=== PATIENT | female | born 1940 | race Caucasian/White ===

== ENCOUNTER 2016-11-17 09:44 | Inpatient (IN) | payer OTHER ==
[~2016-11-17] VITALS: Ht 165.1 cm; Wt 38.6 kg
--- NOTE | 2016-11-17 09:45 | NUR ---
Arrived via [facility] for weakness/syncope. Awake alert and oriented on EMS arrival she then became unresponsive again with BP 73/30. Patient is now drosy though awake alert and oriented. Placed in room 3 . Placed on security monitor, blood pressure machine and pulse oximeter. To gown for exam. Side rails up. Report given to Fallon SHERMAN.
[2016-11-17] MEDS ORDERED: NACL 0.9% 1,000 ML IV SCH (09:55)
[2016-11-17 09:57] VITALS: BP 73/35; PULSE 68; RESP 16; TEMP 97; O2SAT 97
--- NOTE | 2016-11-17 09:57 | NUR ---
KATELIN IBRAHIM AT BEDSIDE FOR EVAL.
--- NOTE | 2016-11-17 10:31 | NUR ---
ACCUCHECK 107. AWARE. PTS REQUESTED THAT FRIEND NAVDEEP BE CALLED. CALLED [phone] AND SPOEK WITH [employer]DEEP'S .
--- NOTE | 2016-11-17 10:40 | NUR ---
Rachel Rodriguez called and stated the patient has been walking through the dinning room without eating for several week. They arenot aware of any decline in mental status until today.
[2016-11-17 10:55] LABS: BASOPHILS # (AUTO) 0.1 K/uL (0.0-0.2); BASOPHILS % (AUTO) 1.3 % (0.0-2.0); EOSINOPHILS % (AUTO) 0.3 % (0.0-4.0); HEMATOCRIT 35.2 % (36-48); HEMOGLOBIN 11.7 g/dL (12.0-16.0); LYMPHOCYTES # (AUTO) 0.4 K/uL (1.0-5.5); LYMPHOCYTES % (AUTO) 9.6 % (20.5-51.5); MEAN CORPUSCULAR HEMOGLOBIN 32 pg (27-31); MEAN CORPUSCULAR HGB CONC 33 % (32-36); MEAN CORPUSCULAR VOLUME 96 fL (79.0-98.0); MONOCYTES # (AUTO) 0.1 K/uL (0.0-1.0); MONOCYTES % (AUTO) 2.8 % (1.7-9.3); NEUTROPHILS # (AUTO) 3.9 K/uL (1.8-7.7); PLATELET COUNT (AUTO) 211 K/uL (130-430); RED BLOOD CELL COUNT(AUTO) 3.68 MIL/uL (4.2-6.2); WHITE BLOOD COUNT (AUTO) 4.5 K/uL (4.8-10.8)
--- NOTE | 2016-11-17 11:00 | NUR ---
IV FLUIDS 1500CC GIVEN TOTAL. BP 92/45. HR 99.
[2016-11-17 11:07] LABS: ANION GAP 15 (5-15); CALCIUM 8.4 mg/dL (8.4-11.0); CHLORIDE 103 mmol/L (98-107); CREATININE 1.28 mg/dL (0.55-1.30); GLUCOSE 180 mg/dL (70-99); POTASSIUM 3.6 mmol/L (3.5-5.1); SODIUM SERUM 137 mmol/L (136-145); UREA NITROGEN, BLOOD 15 mg/dL (8-21)
[2016-11-17 11:12] LABS: ALANINE AMINOTRANSFERASE 20 U/L (12-78); ALBUMIN 3.4 g/dL (3.4-4.8); ASPARTATE AMINOTRANSFERASE 27 U/L (10-37); PROTHROMBIN TIME 11.1 SECS (9.5-12.5); TOTAL BILIRUBIN 0.8 mg/dL (0.0-1.0); TOTAL PROTEIN, SERUM 6.2 g/dL (6.4-8.3)
--- NOTE | 2016-11-17 11:26 | NUR ---
Telemetry strip printed, interpreted as SINUS RHYTHM at 74 bpm, and placed on the chart.
[2016-11-17] MEDS ORDERED: D5NS 1,000 ML IV ONE (11:30)
--- NOTE | 2016-11-17 11:39 | NUR ---
TO CT VIA [facility].
--- NOTE | 2016-11-17 11:48 | NUR ---
RETURNED FROM CT.
--- NOTE | 2016-11-17 12:08 | NUR ---
Patient will be admitted to care of DR CARDENAS. Admitted to unit. Will go to room . Summary report printed. Report given to . PT TRANSFERED TO 135A WITH ACLS PROTOCOL.
--- NOTE | 2016-11-17 12:22 | NUR ---
ADMISSION NOTE Received patient from ER via gurney. Patient admitted with diagnosis of syncope. Patient oriented to hospital routine, call light, toileting and safety-patient verbalized understanding.
[2016-11-17 12:28] VITALS: BP 117/62; PULSE 91; RESP 14; TEMP 96.7; O2SAT 99
[2016-11-17 12:35] VITALS: BP 117/62; PULSE 61; RESP 7; TEMP 96.1; O2SAT 99
--- NOTE | 2016-11-17 13:11 | NUR ---
CARDIOLOGY CONSULT Spoke with Lucia regarding request for consultation with Dr. Booth ([phone]) for reason: syncope.
[2016-11-17 13:39] LABS: BILIRUBIN,URINE NEGATIVE (NEGATIVE); BLOOD, URINE NEGATIVE (NEGATIVE); CLARITY/URINE CLEAR (CLEAR); COLOR,URINE YELLOW (YELLOW); GLUCOSE,URINE NEGATIVE (NEGATIVE); KETONES,URINE 3+ (NEGATIVE); LEUKOCYTE ESTERASE ,URINE NEGATIVE (NEGATIVE); NITRITE, URINE NEGATIVE (NEGATIVE); PROTEIN URINE NEGATIVE (NEGATIVE); UROBILINOGEN,URINE 0.2 (0.2-1.0)
[2016-11-17 13:55] LABS: BACTERIA,URINE RARE /HPF (None Seen); MUCUS,URINE 1+ /LPF (None Seen); RBC,URINE 0-3 /HPF (0-3); WBC,URINE 0-3 /HPF (0-3)
[2016-11-17] MEDS: D5NS 1,000 ML IV SCH (13:56)
--- NOTE | 2016-11-17 14:00 | NUR ---
PATIENT RESTING: Patient resting quietly. No acute distress noted. Vital signs within normal range.
[2016-11-17] MEDS ORDERED: PRO40 PO (14:21)
[2016-11-17] MEDS ORDERED: MULT PO (14:21)
[2016-11-17] MEDS ORDERED: REM15 PO (14:21)
[2016-11-17] MEDS ORDERED: FERR-57 PO (14:21)
[2016-11-17] MEDS ORDERED: ACET325T53 PO (14:21)
[2016-11-17] MEDS ORDERED: DOCU-144 PO (14:21)
[2016-11-17] MEDS ORDERED: CYAN100067 PO (14:21)
--- NOTE | 2016-11-17 15:40 | NUR ---
MD ROUNDS: Dr. Lopez in to see patient.
[2016-11-17 16:00] VITALS: BP 120/64; PULSE 89; RESP 16; TEMP 97.1; O2SAT 100
[2016-11-17] MEDS ORDERED: cefTRIAXone 1 GM IVPB PREMIX 50 ML IV SCH (16:00)
--- NOTE | 2016-11-17 16:17 | NUR ---
MEDICATION: Rocephin not available. Spoke with Mike in pharmacy.
--- NOTE | 2016-11-17 16:18 | NUR ---
PATIENT RESTING: Patient resting quietly. No acute distress noted. Vital signs within normal range.
--- NOTE | 2016-11-17 16:35 | NUR ---
GI CONSULT Spoke with Cait regarding request for consultation with Dr. Lieberman ([phone]) for reason: anorexia.
[2016-11-17] MEDS ORDERED: DIATR MEGLU/DIATRIZ SOD 30 ML SOLUTION PO ONE (17:23)
--- NOTE | 2016-11-17 18:45 | NUR ---
CLOSING NOTE: All needs met. No change in assessment. Will endorse to NOC shift nurse.
[2016-11-17 20:00] VITALS: BP 113/63; PULSE 56; RESP 17; TEMP 98.1; O2SAT 95
--- NOTE | 2016-11-17 20:00 | NUR ---
AWAKE. PLEASANT. SOFT SPOKEN BUT CONVERSANT. DENIES PAIN, AND SOB. BREATH SOUNDS ESSENTIALLY CLEAR. ON ROOM AIR. POX 95%. BOWEL SOUNDS (+). PULSES PALPABLE. SKIN W/D. COLOR SATISFACTORY. HOB UP TO COMFORT. SIDE RAILS UP. CALL LIGHTS WITHIN REACH. SINUS LUZMA.
--- NOTE | 2016-11-18 | NUR ---
ASLEEP. LOOKS COMFORTABLE.
[2016-11-18 00:55] VITALS: BP 107/58; PULSE 55; RESP 18; TEMP 97.7; O2SAT 97
--- NOTE | 2016-11-18 02:00 | NUR ---
SLEPT FOR LONG PERIODS OF TIME. OOB TO TOILET, URINATED. ATTEMPTED TO MOVE BOWEL, UNABLE TO. WALKED BACK TO BEDSIDE WITH MINIMAL ASSIST. SAT AT BEDSIDE COMMODE , ATTEMPTED AGAIN TO MOVE BOWEL, NO BOWEL MOVEMENT NOTED. WENT BACK TO BED WITHOUT INCIDENCE.
[2016-11-18] MEDS: D5NS 1,000 ML IV SCH (02:25)
[2016-11-18 04:00] VITALS: BP 109/60; PULSE 61; RESP 16; TEMP 97.2; O2SAT 97
--- NOTE | 2016-11-18 04:00 | NUR ---
SOUNDLY ASLEEP. TURNS SELF WELL. VSS. 0 DISTRESS.
--- NOTE | 2016-11-18 06:00 | NUR ---
SLEPT WELL. LEFT AC PIV INFILTRATED,DC'D. NEW PIV STARTED IN RIGHT FOREARM. REQUESTED FOR SCD'S TO BE REMOVED AT THIS TIME. NO COMPLAINTS OFFERED AT THIS TIME. REMAINS IN GUARDED CONDITION.
--- NOTE | 2016-11-18 07:59 | NUR ---
AM ROUNDS Patient received, alert awake and oriented x4. VSS. Patient denies pain at this time. Respirations even and unlabored. IV site patent and intact infusing fluids as ordered. traffic monitor specialist in place, rhythm noted. Abdomen soft and non distended, bowel sounds WNL. SCD's bilaterally to lower extremities. Plan of care discussed, patient verbalized understanding. Safety and fall precautions in place, call light within reach, side rails upx3, bed alarm on. Patient encouraged to call for assistance, patient verbalized understanding. Will continue to monitor.
[2016-11-18 08:34] VITALS: BP 113/59; PULSE 65; RESP 17; TEMP 98.9; O2SAT 97
[2016-11-18 09:41] LABS: BASOPHILS % (AUTO) 0.6 % (0.0-2.0); EOSINOPHILS % (AUTO) 0.8 % (0.0-4.0); HEMATOCRIT 30.7 % (36-48); HEMOGLOBIN 10.3 g/dL (12.0-16.0); LYMPHOCYTES % (AUTO) 24.2 % (20.5-51.5); MEAN CORPUSCULAR HEMOGLOBIN 32 pg (27-31); MEAN CORPUSCULAR HGB CONC 33 % (32-36); MEAN CORPUSCULAR VOLUME 96 fL (79.0-98.0); MONOCYTES # (AUTO) 0.3 K/uL (0.0-1.0); MONOCYTES % (AUTO) 7.5 % (1.7-9.3); NEUTROPHILS # (AUTO) 2.7 K/uL (1.8-7.7); NEUTROPHILS % (AUTO) 66.9 % (40.0-70.0); PLATELET COUNT (AUTO) 229 K/uL (130-430); RED CELL DISTRIBUTION WIDTH 12.6 % (9.0-15.0)
[2016-11-18 09:55] LABS: IRON (SERUM) 70 mcg/dL (37-145); TOTAL IRON BIND. CAPACITY 129 ug/dL (250-450)
--- NOTE | 2016-11-18 10:16 | NUR ---
ROUNDS Patient refused abdominal CT at this time. Dr. Lopez aware. IVF infusing as ordered. Patient maintains poor appetite. No further needs at this time. Encouraged patient to call for assistance, patient verbalized understanding. Safety and fall precautions in place, call light within reach, side rails upx3. Will continue to monitor.
[2016-11-18 12:00] VITALS: BP 129/75; PULSE 59; RESP 18; TEMP 98; O2SAT 98
--- NOTE | 2016-11-18 12:00 | NUR ---
ROUNDS Late entry due to patient care. Patient ambulated to bathroom, steady gait. IVF infusing as ordered. Patient aware of discharge order, awaiting ride at this time. Will continue to monitor.
[2016-11-18 13:58] VITALS: BP 129/75; PULSE 59; RESP 18; TEMP 98; O2SAT 98
--- NOTE | 2016-11-18 14:30 | NUR ---
D/C Patient Patient given medication reconciliation form and D/C instructions. Exit Care provided. Patient verbalized understanding. MD discussed with patient the results and treatment provided. Ambulatory with steady gait for discharge to home. Patient in stable condition, ID band removed. IV catheter removed, intact and dressing applied, no active bleeding. Patient educated on disease and food management. All belongings sent with patient.
--- NOTE | 2016-11-24 13:50 | NUR ---
Discharge Follow Up Phone Call SLITTING MACHINE OPERATOR phoned [facility], , where patient resides. The aide there stated that patient attended her follow up appointment with her PCP yesterday, 11/23/16. Patient seems to be back to baseline. There are no questions or concerns.
== END 2016-11-18 14:23 | disposition home or self-care (01) | DRG 641 ==
LOC: SED 09:44 → STU 11:29
PROVIDERS: ADMIT Internal Medicine Hospice and Palliative Medicine; ATTEND Internal Medicine Hospice and Palliative Medicine
DX: E86.9 Volume depletion, unspecified (principal); I95.9 Hypotension, unspecified; E86.0 Dehydration; F32.9 Major depressive disorder, single episode, unspecified; R63.4 Abnormal weight loss; K86.9 Disease of pancreas, unspecified; R13.10 Dysphagia, unspecified; E78.5 Hyperlipidemia, unspecified; E16.2 Hypoglycemia, unspecified; R62.7 Adult failure to thrive
CPT/HCPCS: 36415; 70450-TC; 71010; 76700-TC; 80053; 81000-TC; 82962; 83540-TC; 83550-TC; 83605; 83690-TC; 84484; 85025; 85610-TC; 85730-TC; 87040-TC; 93005; 93306; 96360; 99285; J0696; J7042; Q9964

== ENCOUNTER 2018-11-25 07:50 | Inpatient (IN) | payer OTHER ==
[~2018-11-25] VITALS: Ht 165.1 cm; Wt 39.5 kg
[~2018-11-25 07:50] MED LIST: ACET160S2 PO; ACET325T53 PO; CYAN100010 PO; DOCU-144 PO; FERR-57 PO; MIRT15TA7 PO; MULT PO; PRO40 PO; REM15 PO
[2018-11-25 07:58] VITALS: BP_SYST 157
[2018-11-25] MEDS ORDERED: MORPHINE 4 MG/ML INJ. SYRINGE IVP ONE (08:15)
[2018-11-25] MEDS ORDERED: DIPHENHYDRAMINE INJ 50 MG/ML VIAL IVP ONE (08:15)
[2018-11-25] MEDS ORDERED: D5/0.45 NS 1,000 ML IV ONE (10:00)
[2018-11-25 10:05] LABS: BILIRUBIN,URINE NEGATIVE (NEGATIVE); BLOOD, URINE 2+ (NEGATIVE); CLARITY/URINE CLEAR (CLEAR); COLOR,URINE YELLOW (YELLOW); GLUCOSE,URINE NEGATIVE (NEGATIVE); KETONES,URINE 1+ (NEGATIVE); LEUKOCYTE ESTERASE ,URINE NEGATIVE (NEGATIVE); NITRITE, URINE NEGATIVE (NEGATIVE); PROTEIN URINE NEGATIVE (NEGATIVE); UROBILINOGEN,URINE 0.2 (0.2-1.0)
[2018-11-25 10:19] LABS: BACTERIA,URINE FEW /HPF (None Seen); RBC,URINE 20-50 /HPF (0-3); WBC,URINE 0-3 /HPF (0-3)
[2018-11-25] MEDS ORDERED: MIRT15TA7 PO (10:25)
[2018-11-25] MEDS ORDERED: SENN17.24 PO (10:25)
[2018-11-25] MEDS ORDERED: LORA-258 PO (10:25)
[2018-11-25 10:36] LABS: HEMATOCRIT 39.1 % (36-48); MEAN CORPUSCULAR HEMOGLOBIN 31 pg (27-31); MEAN CORPUSCULAR HGB CONC 33 % (32-36); MEAN CORPUSCULAR VOLUME 94 fL (79.0-98.0); RED BLOOD CELL COUNT(AUTO) 4.15 MIL/uL (4.2-6.2); WHITE BLOOD COUNT (AUTO) 10.5 K/uL (4.8-10.8)
[2018-11-25 10:37] LABS: LYMPHOCYTES % (AUTO) 4.3 % (20.5-51.5); MONOCYTES % (AUTO) 3.6 % (1.7-9.3); NEUTROPHILS % (AUTO) 91.2 % (40.0-70.0); PLATELET COUNT (AUTO) 316 K/uL (130-430); RED CELL DISTRIBUTION WIDTH 15.4 % (9.0-15.0)
[2018-11-25 10:38] LABS: BASOPHILS # (AUTO) 0.1 K/uL (0.0-0.2); BASOPHILS % (AUTO) 0.9 % (0.0-2.0); LYMPHOCYTES # (AUTO) 0.5 K/uL (1.0-5.5); MONOCYTES # (AUTO) 0.4 K/uL (0.0-1.0); NEUTROPHILS # (AUTO) 9.6 K/uL (1.8-7.7)
[2018-11-25 10:58] LABS: ANION GAP 13 (5-15); CALCIUM 9.3 mg/dL (8.4-11.0); CHLORIDE 105 mmol/L (98-107); CREATININE 1.21 mg/dL (0.55-1.30); GLUCOSE 77 mg/dL (70-99); POTASSIUM 4.3 mmol/L (3.5-5.1); SODIUM SERUM 142 mmol/L (136-145); UREA NITROGEN, BLOOD 22 mg/dL (8-21)
[2018-11-25 11:00] LABS: PROTHROMBIN TIME 9.9 SECS (9.5-12.5)
[2018-11-25 11:03] VITALS: BP_SYST 147
[2018-11-25 11:08] LABS: ALANINE AMINOTRANSFERASE 30 U/L (12-78); ASPARTATE AMINOTRANSFERASE 30 U/L (10-37); FREE T4 (FREE THYROXINE) 1.3 ng/dl (0.8-1.5); TOTAL BILIRUBIN 1.2 mg/dL (0.0-1.0)
[2018-11-25 11:19] LABS: ALCOHOL, BLOOD < 3 mg/dL (<10)
[2018-11-25 11:31] LABS: BARBITURATE, URINE NEGATIVE (NEG <=200); BENZODIAZEPINE, URINE NEGATIVE (NEG <=150); CANNABINOID, URINE NEGATIVE (NEG <=50); COCAINE, URINE NEGATIVE (NEG <=150); METHAMPHETAMINES SCREEN,URINE NEGATIVE (NEG <=500); OPIATE, URINE NEGATIVE (NEG <=100); PHENCYCLIDINE SCREEN,URINE NEGATIVE (NEG <=25); UR TRICYCLIC ANTIDEPRESSANTS NEGATIVE (NEG <=300); URINE AMPHETAMINE NEGATIVE (NEG <=500); URINE METHADONE NEGATIVE (NEG <=200); URINE OXYCODONE SCREEN NEGATIVE (NEG <=100); URINE PROPOXYPHENE SCREEN NEGATIVE (NEG <=300)
[2018-11-25 11:42] LABS: BILIRUBIN,URINE NEGATIVE (NEGATIVE); BLOOD, URINE 2+ (NEGATIVE); CLARITY/URINE CLEAR (CLEAR); COLOR,URINE YELLOW (YELLOW); GLUCOSE,URINE NEGATIVE (NEGATIVE); KETONES,URINE 3+ (NEGATIVE); LEUKOCYTE ESTERASE ,URINE NEGATIVE (NEGATIVE); NITRITE, URINE NEGATIVE (NEGATIVE); PROTEIN URINE TRACE (NEGATIVE)
[2018-11-25 12:00] VITALS: BP_SYST 147
[2018-11-25 12:15] LABS: BACTERIA,URINE MODERATE /HPF (None Seen); RBC,URINE 20-50 /HPF (0-3); WBC,URINE 0-3 /HPF (0-3)
[2018-11-25] MEDS ORDERED: ACETAMINOPHEN 325 MG TABLET PO PRN ×2 (13:45→13:52)
[2018-11-25] MEDS ORDERED: HYDROcodone/ACETAMIN 5-325 MG TAB (NORCO/ VICODIN) PO PRN (13:45)
[2018-11-25] MEDS ORDERED: HYDROcodone/ACETAMIN 10-325 MG TAB PO PRN (13:45)
[2018-11-25] MEDS ORDERED: LORazepam 2 MG/ML VIAL IVP PRN (13:45)
[2018-11-25] MEDS ORDERED: ACETAMINOPHEN 325 MG TABLET PO SCH (13:45)
[2018-11-25] MEDS ORDERED: ONDANSETRON HCL 4 MG/2 ML VIAL IVP PRN (13:45)
[2018-11-25] MEDS ORDERED: DOCUSATE SODIUM 100 MG CAPSULE PO PRN (13:45)
[2018-11-25] MEDS: NORMAL SALINE 5 ML DISP.SYRIN IVF SCH ×2 (14:00→20:56)
[2018-11-25 16:30] VITALS: BP_SYST 123
[2018-11-25 19:00] VITALS: BP_SYST 125
[2018-11-25 20:00] VITALS: BP_SYST 125
[2018-11-25] MEDS: PANTOPRAZOLE SODIUM 40 MG TAB PO SCH (20:56)
[2018-11-25] MEDS: SENNOSIDES 8.6 MG TABLET PO SCH (20:56)
[2018-11-25] MEDS: MIRTAZAPINE 15 MG TABLET PO SCH (20:56)
[2018-11-26 00:03] VITALS: BP_SYST 109
[2018-11-26] MEDS: NORMAL SALINE 5 ML DISP.SYRIN IVF SCH ×3 (05:18→21:23)
[2018-11-26 08:05] VITALS: BP_SYST 129
[2018-11-26] MEDS: MULTIVITAMINS TAB 1 TABLET PO SCH (08:23)
[2018-11-26] MEDS: FERROUS SULFATE 325 MG TABLET.DR PO SCH (08:23)
[2018-11-26] MEDS: LORazepam 1 MG TABLET PO SCH (08:23)
[2018-11-26] MEDS: CYANOCOBALAMIN 1000 mCg TABLET PO SCH (08:24)
[2018-11-26] MEDS: PANTOPRAZOLE SODIUM 40 MG TAB PO SCH ×2 (08:24→21:00)
[2018-11-26 12:02] VITALS: BP_SYST 151
[2018-11-26 16:10] VITALS: BP_SYST 122
[2018-11-26 17:21] LABS: ANION GAP 7 (5-15); CALCIUM 8.6 mg/dL (8.4-11.0); CHLORIDE 105 mmol/L (98-107); CREATININE 1.04 mg/dL (0.55-1.30); GLUCOSE 134 mg/dL (70-99); POTASSIUM 3.5 mmol/L (3.5-5.1); SODIUM SERUM 138 mmol/L (136-145); UREA NITROGEN, BLOOD 26 mg/dL (8-21)
[2018-11-26 17:26] LABS: RED BLOOD CELL COUNT(AUTO) 3.44 MIL/uL (4.2-6.2)
[2018-11-26 17:27] LABS: BASOPHILS % (AUTO) 0.4 % (0.0-2.0); EOSINOPHILS % (AUTO) 0.5 % (0.0-4.0); HEMATOCRIT 31.9 % (36-48); HEMOGLOBIN 10.8 g/dL (12.0-16.0); LYMPHOCYTES # (AUTO) 0.7 K/uL (1.0-5.5); MEAN CORPUSCULAR HEMOGLOBIN 31 pg (27-31); MEAN CORPUSCULAR HGB CONC 34 % (32-36); MEAN CORPUSCULAR VOLUME 93 fL (79.0-98.0); MONOCYTES # (AUTO) 0.4 K/uL (0.0-1.0); NEUTROPHILS # (AUTO) 4.9 K/uL (1.8-7.7); NEUTROPHILS % (AUTO) 80.1 % (40.0-70.0); PLATELET COUNT (AUTO) 258 K/uL (130-430); RED CELL DISTRIBUTION WIDTH 14.6 % (9.0-15.0); WHITE BLOOD COUNT (AUTO) 6.1 K/uL (4.8-10.8)
[2018-11-26 20:00] VITALS: BP_SYST 127
[2018-11-26] MEDS: SENNOSIDES 8.6 MG TABLET PO SCH (21:00)
[2018-11-26] MEDS: MIRTAZAPINE 15 MG TABLET PO SCH (21:00)
[2018-11-27 00:54] VITALS: BP_SYST 129
[2018-11-27] MEDS: NORMAL SALINE 5 ML DISP.SYRIN IVF SCH ×3 (06:00→22:28)
[2018-11-27 07:28] LABS: ANION GAP 11 (5-15); CALCIUM 9.2 mg/dL (8.4-11.0); CHLORIDE 101 mmol/L (98-107); CREATININE 1.06 mg/dL (0.55-1.30); GLUCOSE 101 mg/dL (70-99); SODIUM SERUM 138 mmol/L (136-145); UREA NITROGEN, BLOOD 20 mg/dL (8-21)
[2018-11-27 07:35] LABS: HEMATOCRIT 36.2 % (36-48); MEAN CORPUSCULAR HEMOGLOBIN 31 pg (27-31); MEAN CORPUSCULAR HGB CONC 33 % (32-36); MEAN CORPUSCULAR VOLUME 94 fL (79.0-98.0); NEUTROPHILS % (AUTO) 86.7 % (40.0-70.0); PLATELET COUNT (AUTO) 276 K/uL (130-430); RED BLOOD CELL COUNT(AUTO) 3.87 MIL/uL (4.2-6.2); RED CELL DISTRIBUTION WIDTH 14.9 % (9.0-15.0); WHITE BLOOD COUNT (AUTO) 8.4 K/uL (4.8-10.8)
[2018-11-27 07:36] LABS: BASOPHILS % (AUTO) 0.2 % (0.0-2.0); EOSINOPHILS % (AUTO) 0.2 % (0.0-4.0); LYMPHOCYTES # (AUTO) 0.7 K/uL (1.0-5.5); LYMPHOCYTES % (AUTO) 8.6 % (20.5-51.5); MONOCYTES # (AUTO) 0.4 K/uL (0.0-1.0); MONOCYTES % (AUTO) 4.3 % (1.7-9.3); NEUTROPHILS # (AUTO) 7.3 K/uL (1.8-7.7)
[2018-11-27 08:00] VITALS: BP_SYST 153
[2018-11-27 08:06] LABS: POTASSIUM 2.9 mmol/L (3.5-5.1)
[2018-11-27] MEDS: CYANOCOBALAMIN 1000 mCg TABLET PO SCH (09:00)
[2018-11-27] MEDS ORDERED: POTASSIUM CHLORIDE 40 MEQ, LIDOCAINE JECT 2% PF 100 MG 50 MG in NS 250 ML IV ONE (09:00)
[2018-11-27] MEDS: LORazepam 1 MG TABLET PO SCH (09:00)
[2018-11-27] MEDS: PANTOPRAZOLE SODIUM 40 MG TAB PO SCH ×2 (09:00→22:28)
[2018-11-27] MEDS: FERROUS SULFATE 325 MG TABLET.DR PO SCH (09:00)
[2018-11-27] MEDS: MULTIVITAMINS TAB 1 TABLET PO SCH (09:00)
[2018-11-27 12:02] VITALS: BP_SYST 155
[2018-11-27 16:02] VITALS: BP_SYST 151
[2018-11-27] MEDS: SENNOSIDES 8.6 MG TABLET PO SCH (22:28)
[2018-11-27] MEDS: MIRTAZAPINE 15 MG TABLET PO SCH (22:28)
[2018-11-27 22:32] VITALS: BP_SYST 150
[2018-11-28 00:37] VITALS: BP_SYST 148
[2018-11-28] MEDS: NORMAL SALINE 5 ML DISP.SYRIN IVF SCH ×2 (05:15→15:11)
[2018-11-28 07:42] LABS: ANION GAP 6 (5-15); CALCIUM 8.7 mg/dL (8.4-11.0); CHLORIDE 105 mmol/L (98-107); CREATININE 0.88 mg/dL (0.55-1.30); GLUCOSE 112 mg/dL (70-99); POTASSIUM 3.6 mmol/L (3.5-5.1); SODIUM SERUM 138 mmol/L (136-145); UREA NITROGEN, BLOOD 19 mg/dL (8-21)
[2018-11-28 08:09] VITALS: BP_SYST 149
[2018-11-28] MEDS: FERROUS SULFATE 325 MG TABLET.DR PO SCH (08:11)
[2018-11-28] MEDS: MULTIVITAMINS TAB 1 TABLET PO SCH (08:11)
[2018-11-28] MEDS: LORazepam 1 MG TABLET PO SCH (08:11)
[2018-11-28] MEDS: PANTOPRAZOLE SODIUM 40 MG TAB PO SCH (08:11)
[2018-11-28] MEDS: CYANOCOBALAMIN 1000 mCg TABLET PO SCH (08:11)
[2018-11-28 09:25] LABS: HEMATOCRIT 32.6 % (36-48); HEMOGLOBIN 10.8 g/dL (12.0-16.0); MEAN CORPUSCULAR HEMOGLOBIN 31 pg (27-31); MEAN CORPUSCULAR HGB CONC 33 % (32-36); MEAN CORPUSCULAR VOLUME 94 fL (79.0-98.0); RED BLOOD CELL COUNT(AUTO) 3.48 MIL/uL (4.2-6.2); WHITE BLOOD COUNT (AUTO) 5.6 K/uL (4.8-10.8)
[2018-11-28 09:26] LABS: BASOPHILS % (AUTO) 0.6 % (0.0-2.0); EOSINOPHILS # (AUTO) 0.1 K/uL (0.0-0.4); EOSINOPHILS % (AUTO) 1.9 % (0.0-4.0); LYMPHOCYTES # (AUTO) 1.2 K/uL (1.0-5.5); LYMPHOCYTES % (AUTO) 21.8 % (20.5-51.5); MONOCYTES # (AUTO) 0.5 K/uL (0.0-1.0); NEUTROPHILS # (AUTO) 3.8 K/uL (1.8-7.7); NEUTROPHILS % (AUTO) 67.7 % (40.0-70.0); PLATELET COUNT (AUTO) 258 K/uL (130-430); RED CELL DISTRIBUTION WIDTH 14.5 % (9.0-15.0)
[2018-11-28] MEDS ORDERED: HYDROCHLOROTHIAZIDE 12.5 MG CAPSULE (HCTZ) PO ONE (10:00)
[2018-11-28 13:01] VITALS: BP_SYST 139
[2018-11-28 15:57] VITALS: BP_SYST 139
[2018-11-28 16:44] VITALS: BP_SYST 140
[2018-11-29] MEDS ORDERED: HYDROCHLOROTHIAZIDE 12.5 MG CAPSULE (HCTZ) PO SCH (09:00)
== END 2018-11-28 17:35 | DRG 535 ==
LOC: SED 07:50 → SMU 09:56
PROVIDERS: ADMIT Preventive Medicine Preventive Medicine/Occupational Environmental Medicine; ATTEND Preventive Medicine Preventive Medicine/Occupational Environmental Medicine
DX: S72.012A Unspecified intracapsular fracture of left femur, initial encounter for closed fracture (principal); E43 Unspecified severe protein-calorie malnutrition; K44.9 Diaphragmatic hernia without obstruction or gangrene; K21.9 Gastro-esophageal reflux disease without esophagitis; E87.6 Hypokalemia; D64.9 Anemia, unspecified; K59.00 Constipation, unspecified; I10 Essential (primary) hypertension; E88.09 Other disorders of plasma-protein metabolism, not elsewhere classified; Z88.8 Allergy status to other drugs, medicaments and biological substances; F32.9 Major depressive disorder, single episode, unspecified; F41.9 Anxiety disorder, unspecified; E80.6 Other disorders of bilirubin metabolism; R73.9 Hyperglycemia, unspecified; J44.9 Chronic obstructive pulmonary disease, unspecified; W01.0XXA Fall on same level from slipping, tripping and stumbling without subsequent striking against object, initial encounter; Y93.89 Activity, other specified; Y92.89 Other specified places as the place of occurrence of the external cause; Y99.8 Other external cause status
CPT/HCPCS: 36415; 71045; 73502; 74018; 80048; 80053; 80307; 81000-TC; 82140-TC; 82962; 83605; 83880; 84132-TC; 84439; 84484; 85025; 85610-TC; 87040-TC; 87081; 87086; 93005; 97110-GP; 97530-GP; 99285; G0482; J1200; J2060; J2270; J3480; J7030; J7050

== ENCOUNTER 2018-12-08 22:36 | Inpatient (IN) | payer OTHER ==
[~2018-12-08] VITALS: Ht 165.1 cm; Wt 36.3 kg
[~2018-12-08 22:36] MED LIST changes: +LORA-258 PO; +SENN17.24 PO
[2018-12-08 22:38] VITALS: BP_SYST 155
[2018-12-08] MEDS ORDERED: FLEETMO RC (22:54)
[2018-12-08] MEDS ORDERED: ACET325T53 PO (22:54)
[2018-12-08] MEDS ORDERED: ONDA4TAB5 PO (22:54)
[2018-12-08] MEDS ORDERED: SENN8.6T19 PO (22:54)
[2018-12-08] MEDS ORDERED: HYDR-4272 PO (22:54)
[2018-12-08] MEDS ORDERED: SERT25TA PO (22:54)
[2018-12-08] MEDS ORDERED: LACT10SO6 PO (22:54)
[2018-12-08] MEDS ORDERED: BISA10SU61 RC (22:54)
[2018-12-08] MEDS ORDERED: POLY119P15 PO (22:54)
[2018-12-08] MEDS ORDERED: LIDO700A30 TP (22:54)
[2018-12-08] MEDS ORDERED: LORA-258 PO (22:54)
[2018-12-08 23:01] LABS: BILIRUBIN,URINE NEGATIVE (NEGATIVE); BLOOD, URINE 3+ (NEGATIVE); CLARITY/URINE CLEAR (CLEAR); COLOR,URINE YELLOW (YELLOW); GLUCOSE,URINE NEGATIVE (NEGATIVE); KETONES,URINE NEGATIVE (NEGATIVE); LEUKOCYTE ESTERASE ,URINE TRACE (NEGATIVE); NITRITE, URINE NEGATIVE (NEGATIVE); PH,URINE 5.5 (5.0-8.0); PROTEIN URINE NEGATIVE (NEGATIVE); UROBILINOGEN,URINE 0.2 (0.2-1.0)
[2018-12-08 23:05] LABS: RBC,URINE 20-50 /HPF (0-3)
[2018-12-08 23:06] LABS: BACTERIA,URINE FEW /HPF (None Seen); YEAST,URINE Few /HPF (None Seen)
[2018-12-08 23:23] LABS: HEMATOCRIT 33.9 % (36-48); HEMOGLOBIN 11.4 g/dL (12.0-16.0); MEAN CORPUSCULAR VOLUME 93 fL (79.0-98.0); RED BLOOD CELL COUNT(AUTO) 3.67 MIL/uL (4.2-6.2); WHITE BLOOD COUNT (AUTO) 6.3 K/uL (4.8-10.8)
[2018-12-08 23:24] LABS: BASOPHILS # (AUTO) 0.1 K/uL (0.0-0.2); BASOPHILS % (AUTO) 0.8 % (0.0-2.0); EOSINOPHILS # (AUTO) 0.1 K/uL (0.0-0.4); EOSINOPHILS % (AUTO) 1.6 % (0.0-4.0); LYMPHOCYTES # (AUTO) 1.2 K/uL (1.0-5.5); LYMPHOCYTES % (AUTO) 18.7 % (20.5-51.5); MEAN CORPUSCULAR HEMOGLOBIN 31 pg (27-31); MEAN CORPUSCULAR HGB CONC 34 % (32-36); MONOCYTES # (AUTO) 0.4 K/uL (0.0-1.0); MONOCYTES % (AUTO) 6.7 % (1.7-9.3); NEUTROPHILS # (AUTO) 4.6 K/uL (1.8-7.7); NEUTROPHILS % (AUTO) 72.2 % (40.0-70.0); PLATELET COUNT (AUTO) 493 K/uL (130-430); RED CELL DISTRIBUTION WIDTH 14.3 % (9.0-15.0)
[2018-12-08 23:27] LABS: ANION GAP 5 (5-15); CALCIUM 9.1 mg/dL (8.4-11.0); CHLORIDE 105 mmol/L (98-107); CREATININE 0.81 mg/dL (0.55-1.30); GLUCOSE 91 mg/dL (70-99); SODIUM SERUM 140 mmol/L (136-145); UREA NITROGEN, BLOOD 19 mg/dL (8-21)
[2018-12-08 23:33] LABS: ALANINE AMINOTRANSFERASE 20 U/L (12-78); ALBUMIN 2.3 g/dL (3.4-4.8); ASPARTATE AMINOTRANSFERASE 25 U/L (10-37); TOTAL BILIRUBIN 0.2 mg/dL (0.0-1.0)
[2018-12-08 23:47] LABS: PROTHROMBIN TIME 9.8 SECS (9.5-12.5)
[2018-12-09] VITALS (8 sets, daily range): BP systolic 104–158
[2018-12-09] MEDS ORDERED: KCL 10 mEq in D5/0.45NS 1000mL 1,000 ML IV ONE (03:46)
[2018-12-09] MEDS: KCL 10 mEq in D5/0.45NS 1000mL 1,000 ML IV SCH ×2 (03:57→22:23)
[2018-12-09] MEDS ORDERED: SERTRALINE HCL 50 MG TABLET PO ONE (13:15)
[2018-12-09] MEDS ORDERED: DOCUSATE SODIUM 100 MG CAPSULE PO PRN (15:15)
[2018-12-09] MEDS ORDERED: LORazepam 1 MG TABLET PO PRN (15:15)
[2018-12-09] MEDS ORDERED: ACETAMINOPHEN 325 MG TABLET PO PRN (15:15)
[2018-12-09] MEDS ORDERED: BALSAM PERU/CASTOR OIL 60 GM OINT...G. TP ONE (15:15)
[2018-12-09] MEDS ORDERED: IOHEXOL 350 mgI/mL, 150 ML INFUS..BTL IV ONE (18:17)
[2018-12-09] MEDS ORDERED: MIRTAZAPINE 15 MG TABLET PO SCH (21:00)
[2018-12-09] MEDS ORDERED: cefTRIAXone 1 GM in D5W 50 ML IV SCH (21:00)
[2018-12-09] MEDS ORDERED: ACETAMINOPHEN 650 MG SUPP.RECT RC PRN (21:15)
[2018-12-09] MEDS ORDERED: ONDANSETRON HCL 4 MG/2 ML VIAL IVP PRN (21:30)
[2018-12-09] MEDS ORDERED: MORPHINE 4 MG/ML INJ. SYRINGE IVP PRN (21:30)
[2018-12-09] MEDS: PANTOPRAZOLE SODIUM 40 MG TAB PO SCH (22:23)
[2018-12-09] MEDS: ENOXAPARIN SODIUM 60 MG/0.6 ML SYRINGE SUBCUT SCH (22:25)
[2018-12-09] MEDS ORDERED: cefTRIAXone 1 GM VIAL ONE (22:34)
[2018-12-09] MEDS: IPRATROPIUM/ALBUTEROL SULFATE 3 ML AMPUL.NEB (DUONEB) INH SCH (23:45)
[2018-12-10] MEDS: KCL 10 mEq in D5/0.45NS 1000mL 1,000 ML IV SCH ×2 (03:45→18:13)
[2018-12-10] MEDS: IPRATROPIUM/ALBUTEROL SULFATE 3 ML AMPUL.NEB (DUONEB) INH SCH ×3 (07:12→20:20)
[2018-12-10 07:37] LABS: ALANINE AMINOTRANSFERASE 17 U/L (12-78); ANION GAP 11 (5-15); ASPARTATE AMINOTRANSFERASE 22 U/L (10-37); BILIRUBIN,DIRECT 0.1 mg/dL (0.0-0.3); CALCIUM 9.5 mg/dL (8.4-11.0); CHLORIDE 103 mmol/L (98-107); CREATININE 1.18 mg/dL (0.55-1.30); GLUCOSE 119 mg/dL (70-99); POTASSIUM 4.9 mmol/L (3.5-5.1); SODIUM SERUM 139 mmol/L (136-145); TOTAL BILIRUBIN 0.3 mg/dL (0.0-1.0); UREA NITROGEN, BLOOD 19 mg/dL (8-21)
[2018-12-10 07:38] LABS: ALBUMIN 2.4 g/dL (3.4-4.8); AMYLASE 99 U/L (0-100); LIPASE 258 U/L (73-393); THYROID STIMULATING HORMONE 2.69 uIu/mL (0.34-4.82)
[2018-12-10 07:44] LABS: HEMATOCRIT 36.9 % (36-48); HEMOGLOBIN 12.1 g/dL (12.0-16.0); RED BLOOD CELL COUNT(AUTO) 3.88 MIL/uL (4.2-6.2); WHITE BLOOD COUNT (AUTO) 7.4 K/uL (4.8-10.8)
[2018-12-10 07:45] LABS: BASOPHILS % (AUTO) 0.7 % (0.0-2.0); EOSINOPHILS % (AUTO) 0.5 % (0.0-4.0); LYMPHOCYTES % (AUTO) 16.8 % (20.5-51.5); MEAN CORPUSCULAR HEMOGLOBIN 31 pg (27-31); MEAN CORPUSCULAR HGB CONC 33 % (32-36); MEAN CORPUSCULAR VOLUME 95 fL (79.0-98.0); MONOCYTES % (AUTO) 7.6 % (1.7-9.3); NEUTROPHILS % (AUTO) 74.4 % (40.0-70.0); PLATELET COUNT (AUTO) 511 K/uL (130-430); RED CELL DISTRIBUTION WIDTH 14.5 % (9.0-15.0)
[2018-12-10 07:46] LABS: LYMPHOCYTES # (AUTO) 1.2 K/uL (1.0-5.5); MONOCYTES # (AUTO) 0.6 K/uL (0.0-1.0); NEUTROPHILS # (AUTO) 5.5 K/uL (1.8-7.7)
[2018-12-10 08:00] VITALS: BP_SYST 131
[2018-12-10] MEDS ORDERED: PIPERACILLIN/TAZO 2.25G/DEX-IS 50 ML IV ONE (08:30)
[2018-12-10] MEDS: BALSAM PERU/CASTOR OIL 60 GM OINT...G. TP SCH (09:00)
[2018-12-10] MEDS: PANTOPRAZOLE SODIUM 40 MG TAB PO SCH ×2 (09:00→20:12)
[2018-12-10] MEDS: CYANOCOBALAMIN 1000 mCg TABLET PO SCH (09:00)
[2018-12-10] MEDS: SERTRALINE HCL 50 MG TABLET PO SCH (09:00)
[2018-12-10] MEDS: PANTOPRAZOLE SODIUM 40 MG/VIAL (PROTONIX) IVP SCH (10:07)
[2018-12-10] MEDS: ENOXAPARIN SODIUM 60 MG/0.6 ML SYRINGE SUBCUT SCH (10:08)
[2018-12-10] MEDS ORDERED: LORazepam 2 MG/ML VIAL IVP PRN (11:15)
[2018-12-10] MEDS ORDERED: *LOVENOX 1MG/KG Q12H/PHARMACY XX PRN (11:45)
[2018-12-10 13:10] VITALS: BP_SYST 136
[2018-12-10] MEDS: PIPERACILLIN/TAZO 2.25G/DEX-IS 50 ML IV SCH ×3 (13:58→23:00)
[2018-12-10] MEDS ORDERED: POLYETHYLENE GLYCOL 3350, 17 GM/ POWD.PACK PO ONE (15:15)
[2018-12-10 16:57] VITALS: BP_SYST 137
[2018-12-10 19:05] VITALS: BP_SYST 118
[2018-12-10] MEDS: ENOXAPARIN SODIUM 40 MG/0.4 ML SYRINGE SUBCUT SCH (20:08)
[2018-12-10] MEDS: MIRTAZAPINE 15 MG TABLET PO SCH (20:12)
[2018-12-11 00:25] VITALS: BP_SYST 138
[2018-12-11] MEDS: PIPERACILLIN/TAZO 2.25G/DEX-IS 50 ML IV SCH ×4 (05:59→23:12)
[2018-12-11] MEDS: IPRATROPIUM/ALBUTEROL SULFATE 3 ML AMPUL.NEB (DUONEB) INH SCH ×4 (06:00→19:52)
[2018-12-11] MEDS: KCL 10 mEq in D5/0.45NS 1000mL 1,000 ML IV SCH (06:02)
[2018-12-11 07:07] LABS: ANION GAP 5 (5-15); CALCIUM 9.2 mg/dL (8.4-11.0); CHLORIDE 107 mmol/L (98-107); CREATININE 0.93 mg/dL (0.55-1.30); GLUCOSE 99 mg/dL (70-99); SODIUM SERUM 140 mmol/L (136-145); UREA NITROGEN, BLOOD 14 mg/dL (8-21)
[2018-12-11 07:16] LABS: ALANINE AMINOTRANSFERASE 21 U/L (12-78); ASPARTATE AMINOTRANSFERASE 24 U/L (10-37); TOTAL BILIRUBIN 0.4 mg/dL (0.0-1.0)
[2018-12-11 07:23] LABS: HEMATOCRIT 32.6 % (36-48); HEMOGLOBIN 10.9 g/dL (12.0-16.0); MEAN CORPUSCULAR HEMOGLOBIN 31 pg (27-31); MEAN CORPUSCULAR HGB CONC 33 % (32-36); MEAN CORPUSCULAR VOLUME 94 fL (79.0-98.0); RED BLOOD CELL COUNT(AUTO) 3.48 MIL/uL (4.2-6.2)
[2018-12-11 07:24] LABS: BASOPHILS % (AUTO) 0.8 % (0.0-2.0); EOSINOPHILS # (AUTO) 0.1 K/uL (0.0-0.4); EOSINOPHILS % (AUTO) 1.4 % (0.0-4.0); LYMPHOCYTES # (AUTO) 0.9 K/uL (1.0-5.5); LYMPHOCYTES % (AUTO) 18.9 % (20.5-51.5); MONOCYTES # (AUTO) 0.4 K/uL (0.0-1.0); MONOCYTES % (AUTO) 7.7 % (1.7-9.3); NEUTROPHILS # (AUTO) 3.5 K/uL (1.8-7.7); NEUTROPHILS % (AUTO) 71.2 % (40.0-70.0); PLATELET COUNT (AUTO) 497 K/uL (130-430); RED CELL DISTRIBUTION WIDTH 143.7 % (9.0-15.0)
[2018-12-11 08:42] VITALS: BP_SYST 125
[2018-12-11] MEDS: PANTOPRAZOLE SODIUM 40 MG TAB PO SCH ×2 (09:00→20:07)
[2018-12-11] MEDS ORDERED: POLYETHYLENE GLYCOL 3350, 17 GM/ POWD.PACK PO SCH (09:00)
[2018-12-11] MEDS: BALSAM PERU/CASTOR OIL 60 GM OINT...G. TP SCH (09:00)
[2018-12-11] MEDS: PANTOPRAZOLE SODIUM 40 MG/VIAL (PROTONIX) IVP SCH (09:29)
[2018-12-11] MEDS: CYANOCOBALAMIN 1000 mCg TABLET PO SCH (09:29)
[2018-12-11] MEDS: SERTRALINE HCL 50 MG TABLET PO SCH ×2 (09:30→20:06)
[2018-12-11] MEDS: ENOXAPARIN SODIUM 40 MG/0.4 ML SYRINGE SUBCUT SCH ×2 (09:31→20:08)
[2018-12-11] MEDS: D5/0.45 NS 1,000 ML IV SCH (11:37)
[2018-12-11 12:27] VITALS: BP_SYST 132
[2018-12-11 16:34] VITALS: BP_SYST 159
[2018-12-11] MEDS ORDERED: MAGNESIUM CITRATE 300 ML ORAL SOLUTION PO ONE (18:00)
[2018-12-11] MEDS ORDERED: BISACODYL 5 MG TABLET.DR (DULCOLAX) PO ONE (18:00)
[2018-12-11] MEDS ORDERED: MINERAL OIL 30 ML UDC PO ONE (18:15)
[2018-12-11 19:05] VITALS: BP_SYST 128
[2018-12-11] MEDS: MIRTAZAPINE 15 MG TABLET PO SCH (20:07)
[2018-12-12] VITALS (7 sets, daily range): BP systolic 118–163
[2018-12-12] MEDS: PIPERACILLIN/TAZO 2.25G/DEX-IS 50 ML IV SCH ×3 (05:07→18:00)
[2018-12-12] MEDS: IPRATROPIUM/ALBUTEROL SULFATE 3 ML AMPUL.NEB (DUONEB) INH SCH ×4 (08:34→19:35)
[2018-12-12] MEDS: CYANOCOBALAMIN 1000 mCg TABLET PO SCH (09:00)
[2018-12-12] MEDS: POLYETHYLENE GLYCOL 3350, 17 GM/ POWD.PACK PO SCH ×2 (09:00→20:53)
[2018-12-12] MEDS: ENOXAPARIN SODIUM 40 MG/0.4 ML SYRINGE SUBCUT SCH ×2 (09:00→20:54)
[2018-12-12] MEDS: BALSAM PERU/CASTOR OIL 60 GM OINT...G. TP SCH (09:00)
[2018-12-12] MEDS: PANTOPRAZOLE SODIUM 40 MG TAB PO SCH ×2 (09:00→20:53)
[2018-12-12] MEDS: D5/0.45 NS 1,000 ML IV SCH (11:00)
[2018-12-12] MEDS ORDERED: DOCUSATE SODIUM 100 MG CAPSULE PO SCH (15:15)
[2018-12-12] MEDS: MIRTAZAPINE 15 MG TABLET PO SCH (20:54)
[2018-12-12] MEDS: SERTRALINE HCL 50 MG TABLET PO SCH (20:54)
[2018-12-13] MEDS: IPRATROPIUM/ALBUTEROL SULFATE 3 ML AMPUL.NEB (DUONEB) INH SCH ×4 (00:35→19:45)
[2018-12-13] MEDS: PIPERACILLIN/TAZO 2.25G/DEX-IS 50 ML IV SCH ×4 (00:48→18:00)
[2018-12-13 01:16] VITALS: BP_SYST 121
[2018-12-13] MEDS: POLYETHYLENE GLYCOL 3350, 17 GM/ POWD.PACK PO SCH ×2 (08:43→21:00)
[2018-12-13] MEDS: PANTOPRAZOLE SODIUM 40 MG TAB PO SCH ×2 (08:43→21:00)
[2018-12-13] MEDS: BALSAM PERU/CASTOR OIL 60 GM OINT...G. TP SCH (08:44)
[2018-12-13] MEDS: CYANOCOBALAMIN 1000 mCg TABLET PO SCH (08:44)
[2018-12-13] MEDS: ENOXAPARIN SODIUM 40 MG/0.4 ML SYRINGE SUBCUT SCH ×3 (08:44→21:00)
[2018-12-13] MEDS ORDERED: BISACODYL 10 MG/SUPPOSITORY RC PRN (08:45)
[2018-12-13] MEDS: D5/0.45 NS 1,000 ML IV SCH (11:00)
[2018-12-13 12:02] VITALS: BP_SYST 155
[2018-12-13 16:07] VITALS: BP_SYST 157
[2018-12-13] MEDS: SERTRALINE HCL 50 MG TABLET PO SCH (21:00)
[2018-12-13] MEDS: MIRTAZAPINE 15 MG TABLET PO SCH (21:00)
[2018-12-13 21:13] VITALS: BP_SYST 157
== END 2018-12-13 23:05 | DRG 871 ==
LOC: SED 22:36 → STU 12-09 02:36
PROVIDERS: ADMIT Internal Medicine; ATTEND Internal Medicine
DX: A41.9 Sepsis, unspecified organism (principal); I26.99 Other pulmonary embolism without acute cor pulmonale; E43 Unspecified severe protein-calorie malnutrition; J18.9 Pneumonia, unspecified organism; Z68.1 Body mass index [BMI] 19.9 or less, adult; F33.2 Major depressive disorder, recurrent severe without psychotic features; J44.0 Chronic obstructive pulmonary disease with (acute) lower respiratory infection; F41.9 Anxiety disorder, unspecified; I10 Essential (primary) hypertension; K21.9 Gastro-esophageal reflux disease without esophagitis; E78.5 Hyperlipidemia, unspecified; K56.41 Fecal impaction; Z66 Do not resuscitate; J44.9 Chronic obstructive pulmonary disease, unspecified; R79.1 Abnormal coagulation profile; K82.8 Other specified diseases of gallbladder; K31.89 Other diseases of stomach and duodenum; Z91.018 Allergy to other foods; Z79.899 Other long term (current) drug therapy
CPT/HCPCS: 36415; 70450-TC; 71045; 71275; 74018; 76700-TC; 80048; 80053; 80076; 81000-TC; 82140-TC; 82150-TC; 82550-TC; 83605; 83690-TC; 84443-TC; 84484; 85025; 85379; 85610-TC; 87040-TC; 87081; 87086; 92610-GN; 93005; 93970; 94640; 94760; C9113; G0378; J0696; J1650; J2270; J2543; J7060; J7620; Q9967

== ENCOUNTER 2019-01-04 13:40 | Emergency (ER) | payer OTHER ==
[~2019-01-04] VITALS: Ht 160 cm; Wt 56.7 kg
[~2019-01-04 13:40] MED LIST changes: -ACET160S2 PO; +BISA10SU61 RC; -FERR-57 PO; +FLEETMO RC; +HYDR-4272 PO; +LACT10SO6 PO; +LIDO700A30 TP; -MIRT15TA7 PO; +ONDA4TAB5 PO; +POLY119P15 PO; -SENN17.24 PO; +SENN8.6T19 PO; +SERT25TA PO
[2019-01-04 13:45] VITALS: BP_SYST 133
[2019-01-04] MEDS ORDERED: NS 500 ML IV ONE (13:45)
--- NOTE | 2019-01-04 13:45 | NUR ---
Placed in room 1. Placed on fibrous wallboard inspector, blood pressure machine and pulse oximeter. To gown for exam. Side rails up x2.
--- NOTE | 2019-01-04 13:50 | NUR ---
ER Dr. KLEIN at bedside examining patient.
--- NOTE | 2019-01-04 13:55 | NUR ---
.PATIENT SITTING UP ON BED. PATIENT DROWSY, BUT EASILY AROUSABLE. ALERT AND ORIENTED x4. NO SOB. RESPIRATIONS EVEN AND UNLABORED. PATIENT DENIES OF ANY CHEST PAIN, HEADACHE, DIZZINESS, NAUSEA, VOMITING, NUMBNESS, OR TINGLING. PATIENT BROUGHT IN VIA ACLS FOR SYNCOPAL EPISODE WHILE SITTING ON HER WHEELCHAIR. SYNCOPAL EPISODE LASTED FOR APPROXIMATELY 30 SECONDS. PATIENT UNABLE TO RECALL INCIDENT. PATIENT WITH C/O FEELING TIRED AND WEAK. PATIENT IN NO ACUTE DISTRESS. MD ORDERS NOTED AND TO BE CARRIED OUT. WILL CONTINUE TO MONITOR.
[2019-01-04] MEDS ORDERED: ASCO500T20 PO (14:05)
[2019-01-04] MEDS ORDERED: ACET-2165 PO (14:05)
[2019-01-04] MEDS ORDERED: RIVA15TA PO (14:05)
[2019-01-04] MEDS ORDERED: LACT10SO7 PO (14:05)
[2019-01-04] MEDS ORDERED: MOM PO (14:05)
--- NOTE | 2019-01-04 14:05 | NUR ---
Medication reconciliation completed with information provided by DOMINIQUE GUTHRIE. Any prior medication reconciliation on file was reviewed and corrected.
--- NOTE | 2019-01-04 14:05 | NUR ---
IVF OF NORMAL SALINE 500ML STARTED PER MD ORDERS. TOLERATING WELL. PLEASE SEE EMAR FOR DETAILS.
--- NOTE | 2019-01-04 14:25 | NUR ---
INSERTED #16FR / 10cc Tyler catheter with use of sterile technique. NO DIFFICULTY OR RESISTANCE. Immediate return of 10cc CLEAR / YELLOW urine noted. Bedside drainage bag placed below level of bladder. Urine sample collected and sent to lab. Pt tolerated procedure WELL. Patient arrived with tyler in place, changed due to DR. KLEIN ORDERS. Patient unable to toilet self.
[2019-01-04 14:29] LABS: BASOPHILS # (AUTO) 0.1 K/uL (0.0-0.2); BASOPHILS % (AUTO) 0.8 % (0.0-2.0); EOSINOPHILS # (AUTO) 0.1 K/uL (0.0-0.4); EOSINOPHILS % (AUTO) 0.6 % (0.0-4.0); HEMATOCRIT 34.9 % (36-48); HEMOGLOBIN 11.5 g/dL (12.0-16.0); LYMPHOCYTES # (AUTO) 0.7 K/uL (1.0-5.5); LYMPHOCYTES % (AUTO) 7.4 % (20.5-51.5); MEAN CORPUSCULAR HEMOGLOBIN 31 pg (27-31); MEAN CORPUSCULAR HGB CONC 33 % (32-36); MEAN CORPUSCULAR VOLUME 95 fL (79.0-98.0); MONOCYTES # (AUTO) 0.4 K/uL (0.0-1.0); MONOCYTES % (AUTO) 4.1 % (1.7-9.3); NEUTROPHILS # (AUTO) 8.4 K/uL (1.8-7.7); NEUTROPHILS % (AUTO) 87.1 % (40.0-70.0); PLATELET COUNT (AUTO) 512 K/uL (130-430); RED BLOOD CELL COUNT(AUTO) 3.69 MIL/uL (4.2-6.2); RED CELL DISTRIBUTION WIDTH 14.1 % (9.0-15.0); WHITE BLOOD COUNT (AUTO) 9.6 K/uL (4.8-10.8)
[2019-01-04 14:31] LABS: ANION GAP 7 (5-15); CHLORIDE 103 mmol/L (98-107); GLUCOSE 135 mg/dL (70-99); POTASSIUM 4.3 mmol/L (3.5-5.1); SODIUM SERUM 140 mmol/L (136-145)
[2019-01-04 14:32] LABS: CALCIUM 9.7 mg/dL (8.4-11.0); CREATININE 0.72 mg/dL (0.55-1.30); UREA NITROGEN, BLOOD 25 mg/dL (8-21)
[2019-01-04 14:37] LABS: INR 0.9 (0.8-1.2); PROTHROMBIN TIME 9.6 SECS (9.5-12.5)
[2019-01-04 14:40] LABS: ALANINE AMINOTRANSFERASE 22 U/L (12-78); ALBUMIN 2.5 g/dL (3.4-4.8); ASPARTATE AMINOTRANSFERASE 26 U/L (10-37); TOTAL BILIRUBIN 0.4 mg/dL (0.0-1.0)
[2019-01-04] MEDS ORDERED: NACL 0.9% 1,000 ML IV ONE (14:45)
--- NOTE | 2019-01-04 14:45 | NUR ---
PER LAB, URINE SPECIMEN WAS NOT ENOUGH FOR A URINALYSIS; BUT URINE SPECIMEN WAS ENOUGH FOR A URINE CULTURE. DR. KLEIN MADE AWARE. WILL SEND URINE SPECIMEN ONCE SUFFICIENT AMOUNT HAS BEEN OBTAINED IN HANEY BAG.
--- NOTE | 2019-01-04 14:50 | NUR ---
Patient resting quietly. No acute distress noted. Vital signs within normal range.
--- NOTE | 2019-01-04 15:05 | NUR ---
IVF OF NS 1000ML STARTED PER MD ORDERS. TOLERATING WELL. PLEASE SEE EMAR FOR DETAILS.
--- NOTE | 2019-01-04 15:09 | NUR ---
REPORT GIVEN AND CARE TRANSFERRED TO LANE [facility].
[2019-01-04] MEDS ORDERED: LEVOFLOXACIN 500 MG/D5W 100 ML IV ONE (15:15)
--- NOTE | 2019-01-04 15:17 | NUR ---
LEVAQUIN IV STARTED PER MD ORDERS. TOLERATING WELL. PLEASE SEE EMAR FOR DETAILS.
--- NOTE | 2019-01-04 15:40 | NUR ---
TRANSFER INFO PT WILL BE GOING BACK HOME PER [facility] DOC. REQUESTED THAT WE ALL FOR REPORT DOMINIQUE PURDY RM:19B REPORT: [facility] ETA [id number] Addendum: 01/04/19 at 1540 by SDEDSM TRANSFER INFO PT WILL BE GOING BACK HOME PER [facility] DOC. REQUESTED THAT WE ALL FOR REPORT DOMINIQUE PURDY RM:19B REPORT: [facility] ETA 1645 SPOKE TO: MITCHELL
--- NOTE | 2019-01-04 15:55 | NUR ---
Report given to Sowmya at [facility], ETA of [facility] given to facility. Patient resting quietly in no acute distress.
--- NOTE | 2019-01-04 16:04 | NUR ---
Redness noted to left arm, IV Levaquin stopped. IV fluids running wide open, Dr Frazier notified and is at bedside to evaluate patient.
--- NOTE | 2019-01-04 17:00 | NUR ---
Patient resting quietly in no acute distress, vital signs stable, respirations even and unlabored, skin warm and dry to touch. Awaiting ambulance transport back to facility.
--- NOTE | 2019-01-04 18:00 | NUR ---
Patient resting quietly in no acute distress, awaiting ambulance to take patient back to facility.
[2019-01-04 18:09] LABS: BILIRUBIN,URINE NEGATIVE (NEGATIVE); BLOOD, URINE 2+ (NEGATIVE); CLARITY/URINE HAZY (CLEAR); COLOR,URINE YELLOW (YELLOW); GLUCOSE,URINE NEGATIVE (NEGATIVE); KETONES,URINE NEGATIVE (NEGATIVE); LEUKOCYTE ESTERASE ,URINE 2+ (NEGATIVE); NITRITE, URINE POSITIVE (NEGATIVE); PROTEIN URINE NEGATIVE (NEGATIVE); UROBILINOGEN,URINE 0.2 (0.2-1.0)
[2019-01-04 18:15] VITALS: BP_SYST 135
--- NOTE | 2019-01-04 18:15 | NUR ---
Patient given written and verbal discharge instructions and verbalizes understanding. ER MD discussed with patient the results and treatment provided. Patient in stable condition. ID arm band removed. IV catheter removed intact and dressing applied, no active bleeding. No RX given. Patient educated on pain management and to follow up with PMD. Pain Scale 0. Opportunity for questions provided and answered. Medication side effect fact sheet provided. Patient sent back to facility via BLS ambulance from [facility]. Vital signs stable, respirations even and unlabored. Report given to ambulance crew.
[2019-01-04 18:17] LABS: BACTERIA,URINE MODERATE /HPF (None Seen); FINE GRANULAR CASTS,URINE 0-10 /LPF (None Seen); MUCUS,URINE 1+ /LPF (None Seen); WBC,URINE 20-50 /HPF (0-3)
== END 2019-01-04 18:15 | disposition home or self-care (01) ==
LOC: SED 13:40
DX: E86.0 Dehydration (principal); R55 Syncope and collapse; J44.9 Chronic obstructive pulmonary disease, unspecified; F03.90 Unspecified dementia, unspecified severity, without behavioral disturbance, psychotic disturbance, mood disturbance, and anxiety; K21.9 Gastro-esophageal reflux disease without esophagitis; I10 Essential (primary) hypertension; F32.9 Major depressive disorder, single episode, unspecified; F41.9 Anxiety disorder, unspecified; Z86.2 Personal history of diseases of the blood and blood-forming organs and certain disorders involving the immune mechanism; Z88.8 Allergy status to other drugs, medicaments and biological substances; Z91.011 Allergy to milk products; Z79.899 Other long term (current) drug therapy
CPT/HCPCS: 36415; 71045; 80053; 81000; 82962; 83605; 84484; 85025; 85610; 85730; 87040; 87086; 87186; 93005; 96365; 99284; J1956; J7030; J7040